=== PATIENT | male | born 1955 | race Caucasian/White ===

== ENCOUNTER → 2016-07-18 | Outpatient (CLI) | payer MEDICARE, BC ==
[~2016-07-18] VITALS: Ht 177.8 cm; Wt 90.9 kg
[~2016-07-18] MED LIST: AMANTADINE HCL100 M1 PO; AMBIEN5 MG PO; AMPYRA; BACLOFEN10 MG PO; CARDURA 2MG2 MG PO; CIPRO 100MG TA100 MG PO; CLOTRIMAZOLE AN1 CRE TP; DETROL2 MG PO; FLOMAX 0.40.4 MG/CAP PO; LASIX 20MG TABL20 MG PO; VALIUM 5MG T5 MG/TAB PO
[2016-07-18 17:12] VITALS: BP 161/73; PULSE 75; TEMP 98
== END ==
LOC: COL.ER 17:11 → EUO 17:27 → COL.ER 17:27 → EDSTATUS 19:03
DX: T83.098A Other mechanical complication of other urinary catheter, initial encounter (principal); Y83.8 Other surgical procedures as the cause of abnormal reaction of the patient, or of later complication, without mention of misadventure at the time of the procedure
CPT/HCPCS: J0696